=== PATIENT | male | born 1960 | race Caucasian/White ===

== ENCOUNTER → 2024-09-14 09:58 | Outpatient (REF) | payer MEDICARE, OTHER, SELFPAY ==
[2024-09-14 11:14] LABS: ALT (SGPT) 19 U/L (0-50); AST (SGOT) 18 U/L (17-59); Albumin 5.0 g/dl (3.5-5.0); Alkaline Phosphatase 51 U/L (38-126); Blood Urea Nitrogen 10 mg/dl (9-20); Calcium 10.0 mg/dl (8.4-10.2); Carbon Dioxide 22 mmol/L (22-30); Chloride 105 mmol/L (98-107); Glucose 163 mg/dl (70-99); INR 0.95; Magnesium 2.1 mg/dl (1.6-2.3); PT 13.2 Sec (11.4-14.6); Potassium 4.2 mmol/L (3.5-5.1); Sodium 137 mmol/L (135-145); Total Protein 7.9 g/dl (6.3-8.2); eGFR > 60.00
[2024-09-14 11:21] LABS: Hematocrit 47.3 % (39.0-52.0); Hemoglobin 16.6 g/dL (13.0-18.0); Mean Corp Hgb Conc. 35.1 g/dL (33.0-37.0); Mean Corpuscular Volume 89.2 fL (80.0-94.0); Nucleated Red Blood Cells % 0 % (-); Platelet Count 200 10^3/uL (130-400); Red Cell Dist. Width 12.0 % (11.5-14.5)
== END ==
LOC: SDSPAT 09:58
PROVIDERS: ATTENDING PHYSICIAN Internal Medicine Cardiovascular Disease; FAMILY PHYSICIAN Internal Medicine; OTHER PHYSICIAN Internal Medicine
DX: I78.0 Hereditary hemorrhagic telangiectasia (principal); I48.0 Paroxysmal atrial fibrillation
CPT/HCPCS: 36415; 75572; 80053; 83735; 85025; 85610; 86850; 86900; 86901; 93005; Q9967

== ENCOUNTER 2024-09-28 07:48 | Day surgery (SDC) | payer MEDICARE, OTHER, SELFPAY ==
[2024-09-14 10:28] VITALS: BMI 32.0
[2024-09-28] VITALS (15 sets, daily range): BP systolic 89–145; BP diastolic 58–94
[2024-09-28] MEDS: NSS 500 IV (08:49)
[2024-09-28] MEDS: TYLENOL 1000 MG PO (09:24)
[2024-09-28 10:35] LABS: ACT-LR - POC 324 Seconds (116-155)
[2024-09-28 10:51] LABS: ACT-LR - POC 302 Seconds (116-155)
[2024-09-28 11:11] LABS: ACT-LR - POC 392 Seconds (116-155)
[2024-09-28 11:35] LABS: ACT-LR - POC 392 Seconds (116-155)
--- NOTE | 2024-09-28 14:48 | W.PN.UPDATE ---
Update Note
Progress Note Update
Pt seen post PFA. Right groin site without ht/bleeding, urinating without difficulty. Post EKG NSR 60s, no acute changes. Resume eliquis tonight at usual time. Discontinue flecainide at this time. Followup with Dr. Gomez in 2-3 months as
scheduled. Home later today if groin site/tele remain stable.
--- NOTE | 2024-09-28 15:24 | ITS.CL.ABL ---
[facility] - Ablation
Ablation
Procedure Report:
ELECTROPHYSIOLOGIC STUDY AND POSSIBLE ABLATION
DATE: September 28, 2024
Primary Care Provider: Dr Mary Chavez
INDICATION:
Symptomatic Atrial Fibrillation.
Paroxysmal
HISTORY: See H and P.
Symptomatic AF, poorly controlled with attempted medical therapy
HAS-BLED: 1
Age
CHADSVASc: 2
CHF: Heart failure with mildly reduced ejection fraction,�LVEF normalized with restorationism and maintenance of sinus rhythm��
Age
PRESENTING RHYTHM: SR
HISTORY: See H and P.
Symptomatic AF, poorly controlled with attempted medical therapy.
ANTIARRHYTHMIC DRUG: Flecainide 100 mg twice daily
ANTICOAGULATION: Apixaban 5 mg twice daily
'TIME-OUT': called and confirmed.
SEDATION/ANESTHESIA: provided via the anesthesia department using general anesthesia.
PROCEDURE:
Ultrasound Guidance with real-time visualization of needle insertion and vessel patency performed by in for femoral venous Vascular Access.
Under real-time US guidance, the needle was advanced with negative pressure into the vein. The needle was seen entering the vessel lumen with a good return of dark red flow, the syringe was removed, non-pulsatile, dark red blood low was noted and
the wire was passed without difficulty, then the needle was removed. US confirmed the wire was in the vein, not going into an artery,
Images were taken and saved for the patient's permanent record. Imaging findings typical femoral venous anatomy. Direct visualization of needle puncture into the femoral vein was observed and recorded.
A decapolar CS catheter was placed within the CS for mapping and pacing.
The intracardiac ultrasound catheter was positioned in the RA for continuous intracardiac ultrasound imaging.
Heparin bolus and infusion to target ACT at 300 -350 seconds was administered. Transseptal puncture was performed. This entailed advancing a sheath with dilator into the superior vena cava and withdrawing both (monitoring intracardiac ultrasound,
fluoroscopy and tip pressure) with the tip oriented toward the atrial septum. The fossa ovalis was engaged (indicated by sudden displacement of the sheath tip as well as tenting of the fossa seen on intracardiac ultrasound).
Transseptal puncture was performed. Left atrial catheter position was confirmed by echocardiographic imaging, pressure monitoring and fluoroscopy. The sheath was advanced over the dilator and positioned in the left atrium.
The [employer] multipolar mapping/ablation Sphere-9 catheter was positioned through the transseptal sheath for high density mapping.
Geometry and voltage mapping was performed using the [employer] mapping system for three-dimensional electroanatomical mapping.
Catheter positioning was guided and confirmed using both I.C.E. and fluoroscopy.
High density electroanatomical three-dimensional mapping demonstrated LSPV, LIPV, RSPV, RIPV.
Ablation strategy included PVI as well as mapping for extra PV contributors to atrial fibrillation which,if present, would also be targeted.
After accomplishing pulmonary venous isolation, mapping demonstrated both entrance and exit block at each of the pulmonary veins. Ablation was performed in a wide area circumferential ablation (WACA) pattern.
Programmed electrical stimulation was performed. With burst atrial pacing at 350 ms atrial fibrillation was induced. Cardioversion restored sinus rhythm.
Sticking with a pulmonary vein isolation ablation lesion set, wide area ablation was extended about the left superior and right superior pulmonary vein. Programmed electrical stimulation was repeated and with burst atrial pacing at 300 ms atrial
fibrillation was again induced with triggering from the posterior wall of the left atrium.
At this point it was decided to move towards additional lesion set to encompass left atrial posterior wall isolation.
Left atrial posterior wall isolation was accomplished using pulsed electric field energy. This included a box lesion set and a diagonal ablation line from the right superior pulmonary vein to the left inferior pulmonary vein within the box lesion
set. Additional high definition electroanatomical mapping further demonstrated potential triggers with areas of complex fractionated electrograms and low voltages both at the floor inferiorly of the left atrial appendage below the box lesion set
and at the ligament of Darius.
After ablation of the posterior wall, the additional mapped targets were addressed with ablation using pulsed electric field energy.
This included:
LA inferior floor line
The ridge of tissue between the left atrial appendage and the left sided pulmonary veins (Ligament of Darius )
These areas were ablated using pulsed electric field energy eliminating the extra PV contributors to atrial fibrillation.
Final post ablation mapping finds electrical isolation at each of the pulmonary veins (LSPV, LIPV, RSPV, RIPV), the LA posterior wall of the LA and at the additional lines at the inferior/floor of the LA as well as the Ligament of Marshal rendering
the sites no longer able to contribute to atrial fibrillation.
Programmed electrostimulation including burst atrial pacing down to 300 ms as well the delivery of decremental extrastimuli were unable to induce any atrial fibrillation or other sustained arrhythmias.
I.C.E. :
Pre-Ablation Post-Ablation
LVEF: 55 % 55 %
WMA: none none
Pericardial effusion: none none
COMPLICATIONS:
None
SUMMARY:
- Mapping and ablation to isolate the PVs resulting in electrical isolation of the pulmonary veins
- Additional AF ablation sets X 3 after PVI (LA posterior wall, Inf/floor of the LA posterior wall and the ligament of Darius) resulting in elimination of the targeted extra PV contributors to atrial fibrillation
- 3-D Electroanatomical Mapping
- Intracardiac Ultrasound
- Ultrasound guidance for vascular access
Post ablation, I discussed today's findings and results with the patient's and daughter.
RECOMMENDATIONS:
- Observe in monitored bed.
- Maintain oral anticoagulation, Eliquis 5 mg twice daily.
- Discontinue flecainide
- Office visit with me in 3-4 months.
Copy to: Dr Mary Chavez
== END 2024-09-28 16:30 | disposition home or self-care (01) ==
LOC: CATH 07:48
PROVIDERS: ATTENDING PHYSICIAN Internal Medicine Cardiovascular Disease; FAMILY PHYSICIAN Internal Medicine; OTHER PHYSICIAN Internal Medicine
DX: I48.0 Paroxysmal atrial fibrillation (principal); I11.0 Hypertensive heart disease with heart failure; I50.22 Chronic systolic (congestive) heart failure; Z79.01 Long term (current) use of anticoagulants; Z79.899 Other long term (current) drug therapy; F41.9 Anxiety disorder, unspecified; Z91.041 Radiographic dye allergy status; Z79.51 Long term (current) use of inhaled steroids; J45.20 Mild intermittent asthma, uncomplicated
CPT/HCPCS: C1733; C1894; C1766; C1892; C1730; 85347; 86900; 86901; 93005; 93656; 93657